=== PATIENT | female | born 1990 | race Caucasian/White ===

== ENCOUNTER 2021-01-01 07:33 | Emergency (ER) | payer OTHER ==
[~2021-01-01] VITALS: Ht 162.6 cm; Wt 62.0 kg
--- NOTE | 2021-01-01 08:20 | PHYS DOC ---
Past History Past Surgical History: Tonsillectomy Alcohol Use: Rarely General Adult EDM: Chief Complaint: ABDOMINAL PAIN HPI: HPI: Patient is a 30-year-old female coming in for 2 days of left lower quad abdominal pain. Patient states the pain is occasionally sharp but that is also pulsating. States occasionally radiates to her back. Denies any dysuria or hematuria. Patient was seen yesterday at urgent care and diagnosed with urinary tract infection. Started taking Pyridium and Macrobid, has noticed a reddish color to her urine since last night. Denies any fevers, change in bowel movement, nausea or vomiting. Review of Systems: Review of Systems: All other systems within normal limits except for as noted in the HPI Allergies: Allergies: Allergies Coded Allergies Type Severity Reaction Last Updated Verified Penicillins Allergy Unknown Rash 01/01/21 Yes Physical Exam: PE: Constitutional: Well developed, well nourished, no acute distress, non-toxic appearance. [] HENT: Normocephalic, atraumatic, bilateral external ears normal, nose normal. [] Eyes: PERRLA, conjunctiva normal, no discharge. [] Neck: No rigidity, supple, no stridor. [] Cardiovascular: Regular rate and rhythm, brisk cap refill [] Lungs & Thorax: Non labored symmetric respirations, no tachypnea or respiratory distress [] Abdomen: Soft, nondistended left lower quadrant tenderness, no rebound or guarding. Skin: Warm, dry, no erythema, no rash. [] Back: Unremarkable Extremities: No deformities, range of motion grossly intact, no lower extremity edema [] Neurologic: Alert and oriented X 3, no focal deficits noted. [] Psychologic: Affect normal, judgement normal, mood normal. [] Current Patient Data: Vital Signs: Vital Signs Date Time Temp Pulse Resp B/P (MAP) Pulse Ox O2 Delivery O2 Flow Rate FiO2 01/01/21 07:47 98.5 67 18 149/98 (115) 99 Room Air EKG: EKG: [] Radiology/Procedures: Radiology/Procedures: [address] [address] IMAGING REPORT Signed PATIENT: MALA KHANNA ACCOUNT: [id number] : 1990 LOCATION: ER AGE: 30 SEX: F EXAM STATUS: REG ER ORD. PHYSICIAN: NATALI HUGHES MD REASON: LLQ pain, NAUSEA X SEVERAL DAYS, OMNI 300 75ML IV PROCEDURE: CT ABD PELV W/ IV CONTRST ONLY Study: CT abdomen/pelvis with intravenous contrast Indication: Left lower quadrant pain. Nausea. Comparison: None. Technique: Helical CT imaging performed of the abdomen and pelvis after the intravenous administration of 75 cc Omnipaque 300 contrast. Sagittal and coronal reformats were obtained. One or more of the following individualized dose reduction techniques were utilized for this examination: 1. Automated exposure control 2. Adjustment of the mA and/or kV according to patient size 3. Use of iterative reconstruction technique. Findings: Chest: Unremarkable visualized lungs and mediastinal contents. Liver: No focal hepatic parenchymal abnormality. Gallbladder/Biliary Tree: Unremarkable. Pancreas: Unremarkable. Spleen: Within normal limits for size. Adrenal Glands: No adrenal gland mass. Kidneys/Ureters/Bladder: Diminished enhancement of the left kidney relative to the right. Mild collecting system dilatation on the left in the setting of a 2 mm stone at the ureterovesicular junction, image 75 series 2. No stone or collecting system dilatation on the right. Unremarkable bladder. Reproductive Organs: Within normal limits. Colon: Mild volume colonic stool burden. Appendix: No inflammatory changes at its expected location. Small Bowel: Nonobstructed. Stomach: Unremarkable. Vasculature: Unremarkable. Lymph Nodes: No lymphadenopathy. Peritoneum and Body Wall: No significant abnormality. Bones: No acute or aggressive process. Miscellaneous: None. Impression: Diminished enhancement of the left kidney relative to the right and mild left- sided collecting system dilatation in the setting of a 2 mm stone at the ureterovesicular junction. No additional acute abnormality throughout the abdomen or pelvis. Electronically signed by: OKSANA IBANEZ MD (01/01/2021 9:29 AM) [id number] DICTATED AND SIGNED BY: OKSANA IBANEZ MD DATE: 01/01/21924 CC: NATALI HUGHES MD; DLKATYA KOO ~MTH0 0 [] Heart Score: C/O Chest Pain: No Risk Factors: Risk Factors: DM, Current or recent (<one month) smoker, HTN, HLP, family history of CAD, obesity. Risk Scores: Score 0 - 3: 2.5% MACE over next 6 weeks - Discharge Home Score 4 - 6: 20.3% MACE over next 6 weeks - Admit for Clinical Observation Score 7 - 10: 72.7% MACE over next 6 weeks - Early Invasive Strategies Course & Med Decision Making: Course & Med Decision Making Pertinent Labs and Imaging studies reviewed. (See chart for details) [] Dragon Disclaimer: Dragon Disclaimer: This electronic medical record was generated, in whole or in part, using a voice recognition dictation system. Departure Departure: Impression: Primary Impression: Kidney stone on left side Disposition: HOME / SELF CARE / HOMELESS Condition: STABLE Referrals: KATYA TRAVIS (PCP) Patient Instructions: Kidney Stones Scripts Hydrocodone Bit/Acetaminophen (HYDROCODONE-APAP 5-325 ) 1 Each Tablet 1 TAB PO PRN Q6HRS PRN for PAIN for 3 Days, #12 TAB 0 Refills Prov: NATALI HUGHES MD 01/01/21 NATALI HUGHES MD Jan 01, 2021 08:20
[2021-01-01 08:32] LABS: CLARITY,URINE HAZY; COLOR,URINE ORANGE
[2021-01-01 08:33] LABS: BACTERIA,URINE FEW /HPF (0-FEW); RBC,URINE OCC /HPF (0-2); SQUAMOUS EPITHELIAL CELL,UR FEW /LPF
[2021-01-01 08:35] LABS: U PREG PATIENT NEGATIVE (NEG)
[2021-01-01] MEDS: KETOROLAC 15 MG/ML VIAL. IVP ONE (08:50)
[2021-01-01 08:54] LABS: BASO % 0 % (0-3); EOS % 0 % (0-3); HEMOGLOBIN 13.5 g/dL (12.0-15.5); LYMPH # 2.9 x10^3/uL (1.0-4.8); LYMPH % 31 % (24-48); MEAN CORPUSCULAR HEMOGLOBIN 30 pg (25-35); MEAN CORPUSCULAR HGB CONC 33 g/dL (31-37); MEAN CORPUSCULAR VOLUME 91 fL (79-100); MONO # 0.8 x10^3/uL (0.0-1.1); MONO % 9 % (0-9); NEUT # 5.6 x10^3uL (1.8-7.7); NEUT % 60 % (31-73); PLATELET COUNT 258 x10^3/uL (140-400); RED BLOOD COUNT 4.49 x10^6/uL (3.50-5.40); RED CELL DISTRIBUTION WIDTH 12.9 % (11.5-14.5); WHITE BLOOD COUNT 9.3 x10^3/uL (4.0-11.0)
[2021-01-01 08:55] LABS: CALCIUM 8.6 mg/dL (8.5-10.1); CREATININE 1.1 mg/dL (0.6-1.0); GFR 58.7; POTASSIUM 3.6 mmol/L (3.5-5.1)
[2021-01-01] MEDS ORDERED: CONTRAST GIVEN. MC PRN (09:00)
[2021-01-01 09:01] LABS: ALBUMIN 4.1 g/dL (3.4-5.0); ALBUMIN/GLOBULIN RATIO 1.2 (1.0-1.7); TOTAL BILIRUBIN 0.4 mg/dL (0.2-1.0); TOTAL PROTEIN 7.6 g/dL (6.4-8.2)
[2021-01-01] MEDS: IOHEXOL 300 MG/ML 75 ML VIAL. IV ONE (09:18)
--- NOTE | 2021-01-01 09:32 | RAD ---
Study: CT abdomen/pelvis with intravenous contrast Indication: Left lower quadrant pain. Nausea. Comparison: None. Technique: Helical CT imaging performed of the abdomen and pelvis after the intravenous administratio n of 75 cc Omnipaque 300 contrast. Sagittal and coronal reformats were obtained. One or more of the following individualized dose reduction techniques were utilized for this examinat ion: 1. Automated exposure control 2. Adjustment of the mA and/or kV according to patient size 3. Use of iterative reconstruction technique. Findings: Chest: Unremarkable visualized lungs and mediastinal contents. Liver: No focal hepatic parenchymal abnormality. Gallbladder/Biliary Tree: Unremarkable. Pancreas: Unremarkable. Spleen: Within normal limits for size. Adrenal Glands: No adrenal gland mass. Kidneys/Ureters/Bladder: Diminished enhancement of the left kidney relative to the right. Mild collec ting system dilatation on the left in the setting of a 2 mm stone at the ureterovesicular junction, i mage 75 series 2. No stone or collecting system dilatation on the right. Unremarkable bladder. Reproductive Organs: Within normal limits. Colon: Mild volume colonic stool burden. Appendix: No inflammatory changes at its expected location. Small Bowel: Nonobstructed. Stomach: Unremarkable. Vasculature: Unremarkable. Lymph Nodes: No lymphadenopathy. Peritoneum and Body Wall: No significant abnormality. Bones: No acute or aggressive process. Miscellaneous: None. Impression: Diminished enhancement of the left kidney relative to the right and mild left-sided collecting system dilatation in the setting of a 2 mm stone at the ureterovesicular junction. No additional acute abno rmality throughout the abdomen or pelvis. Electronically signed by: OKSANA IBANEZ MD (01/01/2021 9:29 AM) [id number]
[2021-01-01 09:33] VITALS: BP 136/77
[2021-01-01] MEDS ORDERED: HYDR-2155 PO (09:59)
== END 2021-01-01 10:15 | disposition home or self-care (01) ==
LOC: ER 07:33
DX: N20.0 Calculus of kidney (principal); Z88.0 Allergy status to penicillin
CPT/HCPCS: 36415; 74177; 80053; 81001; 81025; 83690; 85025; 96374; 96375; 99285; J1885; J3010; Q9967